=== PATIENT | female | born 1960 | race Caucasian/White ===

== ENCOUNTER 2019-11-23 06:57 | Day surgery (SDC) | payer BC ==
[2019-11-18 12:00] LABS: HEMATOCRIT 44.2 % (36.0-47.0); HEMOGLOBIN 15.2 g/dL (12.0-15.5); MEAN CORPUSCULAR HEMOGLOBIN 30.9 pg (27.0-33.4); MEAN CORPUSCULAR HGB CONC 34.4 g/dL (32.0-36.0); MEAN CORPUSCULAR VOLUME 90 fl (80-97); PLATELET COUNT 236 10^3/uL (150-450); RED BLOOD COUNT 4.93 10^6/uL (3.72-5.28); RED CELL DISTRIBUTION WIDTH 12.7 % (11.5-14.0); WHITE BLOOD COUNT 5.6 10^3/uL (4.0-10.5)
[2019-11-18 12:05] LABS: APPEARANCE,URINE CLEAR; BILIRUBIN,URINE NEGATIVE (NEGATIVE); COLOR,URINE YELLOW; GLUCOSE, URINE NEGATIVE (NEGATIVE); KETONES,URINE NEGATIVE (NEGATIVE); LEUKOCYTE ESTERASE,URINE NEGATIVE (NEGATIVE); NITRITE,URINE NEGATIVE (NEGATIVE); PROTEIN,URINE NEGATIVE (NEGATIVE); UROBILINOGEN,URINE NEGATIVE mg/dL (<2.0)
--- NOTE | 2019-11-18 12:09 | RADIOLOGY REPORT (SQ) ---
EXAM DESCRIPTION: CHEST PA/LATERAL COMPLETED DATE/TIME: 11/18/2019 11:31 am REASON FOR STUDY: PRE-OP COMPARISON: None. EXAM PARAMETERS: NUMBER OF VIEWS: two views TECHNIQUE: Digital Frontal and Lateral radiographic views of the chest acquired. RADIATION DOSE: NA LIMITATIONS: none FINDINGS: LUNGS AND PLEURA: No opacities, masses or pneumothorax. No pleural effusion. MEDIASTINUM AND HILAR STRUCTURES: No masses or contour abnormalities. HEART AND VASCULAR STRUCTURES: Heart normal size. No evidence for failure. BONES: No acute findings. HARDWARE: None in the chest. OTHER: No other significant finding. IMPRESSION: NO SIGNIFICANT RADIOGRAPHIC FINDING IN THE CHEST. TECHNICAL DOCUMENTATION: JOB ID: [id number] [employer]- All Rights Reserved Reading location - IP/workstation name: [email or web address]
[2019-11-18 12:23] LABS: ALBUMIN 4.3 g/dL (3.5-5.0); ALKALINE PHOSPHATASE 58 U/L (38-126); ANION GAP 8 (5-19); ASPARTATE AMINO TRANSFERASE 25 U/L (14-36); BILIRUBIN,TOTAL 0.4 mg/dL (0.2-1.3); BLOOD UREA NITROGEN 15 mg/dL (7-20); CALCIUM 10.3 mg/dL (8.4-10.2); CARBON DIOXIDE 27 mmol/L (22-30); CHLORIDE 105 mmol/L (98-107); GLUCOSE 97 mg/dL (75-110); POTASSIUM 5.4 mmol/L (3.6-5.0)
--- NOTE | 2019-11-18 14:21 | EKG REPORT ---
SEVERITY:- NORMAL ECG - SINUS RHYTHM : Confirmed by: Lolita Moran 18-Nov-2019 14:20:52
[~2019-11-23 06:57] MED LIST: CEFAZOLIN 1 GM/D5W RTU 1 GM/50 ML RTUPB IV PRN; LACTATED RINGERS 1000 ML IV PRN; LIDOCAINE 0.5% INJ-PF (5 MG/ML) 50 ML SDV SUBCUT PRN; SCOPOLAMINE HYDROBROMIDE 1.5 MG PATCH.TD72 TD PRN
[2019-11-23] MEDS ORDERED: FENTANYL CITRATE INJ/PF 100 MCG/2 ML AMPUL ONE (07:11)
[2019-11-23] MEDS ORDERED: MIDAZOLAM 2 MG/2 ML INJ ONE (07:11)
[2019-11-23] MEDS ORDERED: KETOROLAC TROMETHAMINE 60 MG/2 ML SDV ONE (07:11)
[2019-11-23] MEDS ORDERED: ONDANSETRON HCL INJ/PF 4 MG/2 ML SDV ONE (07:12)
[2019-11-23] MEDS ORDERED: DEXAMETHASONE SOD PHOSPHATE INJ 4 MG/1 ML VIAL ONE (07:12)
[2019-11-23] MEDS ORDERED: MORPHINE SULFATE 10 MG/ML INJ ONE (07:12)
[2019-11-23] MEDS ORDERED: PROPOFOL INJ 200 MG/20 ML VIAL IV ONE (07:12)
[2019-11-23] MEDS ORDERED: CEFAZOLIN 1 GM/D5W RTU 1 GM/50 ML RTUPB IV ONE (08:10)
[2019-11-23] MEDS ORDERED: SCOPOLAMINE HYDROBROMIDE 1.5 MG PATCH.TD72 ONE (08:34)
[2019-11-23] MEDS ORDERED: PROMETHAZINE HCL INJ 25 MG/1 ML VIAL IV PRN ×2 (09:32)
[2019-11-23] MEDS ORDERED: FENTANYL CITRATE INJ/PF 100 MCG/2 ML AMPUL IV PRN ×3 (09:32)
[2019-11-23] MEDS ORDERED: MEPERIDINE HCL/PF INJ 25 MG/1 ML DISP.SYRIN IV PRN (09:32)
[2019-11-23] MEDS ORDERED: DIPHENHYDRAMINE HCL 50 MG/ML VIAL IV PRN (09:32)
[2019-11-23] MEDS ORDERED: ONDANSETRON HCL INJ/PF 4 MG/2 ML SDV IV PRN (09:32)
[2019-11-23] MEDS ORDERED: OXYCODONE-ACETAMINOPHEN 5-325 MG TABLET PO PRN ×2 (09:32)
[2019-11-23] MEDS ORDERED: MORPHINE SULFATE 10 MG/ML INJ IV PRN ×2 (09:32→11:52)
--- NOTE | 2019-11-23 11:13 | Operative Report ---
Operative Report DATE OF SURGERY: 11/23/19 PREOPERATIVE DIAGNOSIS: POP rectocele cystocele POSTOPERATIVE DIAGNOSIS: Same OPERATION: [facility] A&P repair sacrospinous ligament vaginal suspension SURGEON: EUGENE VALDEZ ANESTHESIA: GA TISSUE REMOVED OR ALTERED: Uterus vaginal mucosa COMPLICATIONS: None ESTIMATED BLOOD LOSS: 600 cc PROCEDURE: Patient placed in a dorsal lithotomy position prepped draped sterile fashion. Speculum is placed cervix visualized and grasped with a Renan thyroid clamp. Posterior cul-de-sac was entered with sharp dissection posterior parietoperitoneum sutured to the posterior cuff with 2-0 Vicryl. Left uterosacral was clamped divided suture 2-0 Vicryl repeated on the right. Cervix was sharply circumscribed anterior parietoperitoneum was entered with sharp dissection. Serial clamps were each side of the broad ligament each pedicle being clamped divided and suture 2-0 Vicryl continued to the level utero-ovarian ligaments which were crossclamped uterus removed. Utero-ovarian ligaments then suture with a free tie of 2-0 Vicryl followed by suture tie of 2-0 Vicryl. Pedicles were inspected and hemostasis was noted. Wound was closed with interrupted sutures of 2-0 Vicryl. Stasis was noted. Anterior repair was accomplished by grasping the badge mucosa centimeter below the urethra and with sharp dissection in the vaginal mucosa in the midline to just above the cuff. Underlying vesicovaginal tissue was bluntly sharply divided. Tissue was then plicated in the midline uterine multiple 2-0 Vicryl sutures. Excess mucus was removed and the incision closed running suture of 2-0 Vicryl. Posterior repair and suspension was then accomplished by grasping the vaginal tissue at the r emnants of the hymenal ring dividing the tissues crosswise and then in the midline to just below the cuff. Underlying recommended tissue was bluntly sharply divided. The anchor sure the suture was placed into the right sacrospinous ligament. Excess vaginal tissue the vaginal defect was then closed with running suture of 2-0 Vicryl. Vagina was packed with a moistened pack. The urine remained clear throughout the procedure. Patient was taken to recovery room good condition. Was then excised. The other end was then sutured to the posterior portion of the vaginal cuff. Underlying rectovaginal tissue then plicated midline uterine multiple 2-0 Vicryl. . The placed suture into the ligament was then plicated from the apex of the vagina to the ligament.
[2019-11-23] MEDS ORDERED: ONDANSETRON HCL 8 MG TABLET PO PRN (11:53)
[2019-11-23] MEDS ORDERED: GLYCOPYRROLATE 1 MG/5 ML VIAL ONE (12:31)
[2019-11-23] MEDS ORDERED: SUCCINYLCHOLINE CHLORIDE INJ 200 MG/10 ML VIAL ONE (12:31)
[2019-11-23] MEDS: IBUPROFEN 800 MG TABLET PO SCH ×2 (14:19→17:17)
[2019-11-23] MEDS ORDERED: ONDANSETRON HCL 8 MG TABLET ONE (19:01)
[2019-11-23] MEDS: OXYCODONE-ACETAMINOPHEN 5-325 MG TABLET PO PRN (21:15)
[2019-11-24] MEDS ORDERED: PROMETHAZINE HCL INJ 25 MG/1 ML VIAL IV ONE (04:45)
[2019-11-24] MEDS: OXYCODONE-ACETAMINOPHEN 5-325 MG TABLET PO PRN (06:05)
[2019-11-24 07:33] VITALS: BP 109/57
== END 2019-11-24 08:00 | disposition home or self-care (01) ==
LOC: OROUT 06:57 → 2N 12:30 → OROUT 11-24 08:00
PROVIDERS: ATTEND Obstetrics & Gynecology Gynecology
DX: R10.2 Pelvic and perineal pain (principal); N81.11 Cystocele, midline; N81.6 Rectocele; N72 Inflammatory disease of cervix uteri; N80.0 Endometriosis of uterus; Z79.899 Other long term (current) drug therapy; K76.0 Fatty (change of) liver, not elsewhere classified
CPT/HCPCS: 93005; 86900; 86901; 36415 ×2; 86850; 84132; 85027; 80053; 81001; 88307 ×2; 71046; 93010; 57260; 58260; 57282; J2250; J0690; J1100; J1885; J3010; J2270; S0119; J0330; J2405; J2704; J3490